=== PATIENT | female | born 1945 | race Caucasian/White ===

== ENCOUNTER → 2016-11-08 | Outpatient (CLI) | payer OTHER, MEDICARE ==
[2015-04-22 11:58] VITALS: BP 124/72
[~2016-11-08] MED LIST: ALBU8.5H6 INH; BUDE10.2 IH; CALC200V IJ; FURO40TA4 PO; POTA20TA82 PO; b-12 SUBCUT
--- NOTE | 2016-11-08 12:56 | RAD ---
EXAM: DIGITAL SCREEN BILAT W/CAD. HISTORY: Screening. COMPARISON: 05/08/2014. FINDINGS: Digital mammography was performed. Computer-aided detection (CAD) was utilized. The breast parenchyma is heterogeneously dense, which could reduce sensitivity of mammography (tissue density C). No dominant suspicious mass, suspicious microcalcifications, or architectural distortion is identified. Both breasts demonstrate multiple calcifications are without significant. IMPRESSION: No mammographic evidence of malignancy. BI-RADS CATEGORY: 2 BENIGN FINDING(S) RECOMMENDED FOLLOW-UP: 12M 12 MONTH FOLLOW-UP PQRS compliance statement: Patient information was entered into a reminder system with a target due date for the next mammogram. Mammography is a sensitive method for finding small breast cancers, but it does not detect them all and is not a substitute for careful clinical examination. A negative mammogram does not negate a clinically suspicious finding and should not result in delay in biopsying a clinically suspicious abnormality. "Our facility is accredited by the [employer] Mammography Program."
== END | disposition home or self-care (01) ==
LOC: MAMMO 08:00
PROVIDERS: ATTEND Family Medicine
DX: Z12.31 Encounter for screening mammogram for malignant neoplasm of breast (principal)
CPT/HCPCS: 77052; G0202; 77067

== ENCOUNTER → 2017-02-06 | Outpatient (CLI) | payer MEDICARE, OTHER ==
[2015-04-22 11:58] VITALS: BP 124/72
== END | disposition home or self-care (01) ==
LOC: PF 12:21
PROVIDERS: ATTEND Internal Medicine Critical Care Medicine
DX: R06.02 Shortness of breath (principal)
CPT/HCPCS: 94060; 94729

== ENCOUNTER 2017-12-13 13:33 | Inpatient (IN) | payer MEDICARE, OTHER ==
[2017-12-13] MEDS: FUROSEMIDE 40 MG/4 ML VIAL. IVP (14:47)
[2017-12-13] MEDS: methylPREDNISolone SOD SUCC PF 125 MG/2 ML VIAL. IV (14:47)
[2017-12-13] MEDS: IPRATRPIUM/ALBUTEROL 0.5/2.5MG 3 ML NEBU. NEB (15:07)
[2017-12-13 15:25] LABS: ADD MAN DIFF? NO
[2017-12-13 15:26] LABS: HEMATOCRIT 42.6 % (36.0-47.0); HEMOGLOBIN 14.5 g/dL (12.0-15.5); MEAN CORPUSCULAR HEMOGLOBIN 30 pg (25-35); MEAN CORPUSCULAR HGB CONC 34 g/dL (31-37); MEAN CORPUSCULAR VOLUME 89 fL (79-100); NEUT % 48 % (31-73); PLATELET COUNT 197 x10^3/uL (140-400); RED BLOOD COUNT 4.78 x10^6/uL (3.50-5.40); RED CELL DISTRIBUTION WIDTH 14.7 % (11.5-14.5); WHITE BLOOD COUNT 7.2 x10^3/uL (4.0-11.0)
[2017-12-13 15:27] LABS: BASO # 0.1 x10^3/uL (0.0-0.2); BASO % 2 % (0-3); EOS # 0.3 x10^3/uL (0.0-0.7); EOS % 4 % (0-3); LYMPH # 2.5 x10^3/uL (1.0-4.8); LYMPH % 35 % (24-48); MONO # 0.9 x10^3/uL (0.0-1.1); MONO % 12 % (0-9); NEUT # 3.4 x10^3uL (1.8-7.7)
[2017-12-13 15:36] LABS: PARTIAL THROMBOPLASTIN TIME 30 SEC (24-38); PROTHROMBIN TIME PATIENT 12.1 SEC (11.7-14.0)
[2017-12-13 15:45] LABS: ANION GAP 6 (6-14); BLOOD UREA NITROGEN 10 mg/dL (7-20); BUN/CREATININE RATIO 14 (6-20); CARBON DIOXIDE 33 mmol/L (21-32); CHLORIDE 102 mmol/L (98-107); CREATININE 0.7 mg/dL (0.6-1.0); GFR 81.8; GLUCOSE 103 mg/dL (70-99); SODIUM 141 mmol/L (136-145)
[2017-12-13 15:47] LABS: INFLUENZA A PATIENT NEGATIVE (NEGATIVE); INFLUENZA B PATIENT NEGATIVE (NEGATIVE); OBC FLU VALID
[2017-12-13 15:48] LABS: TROPONINI 0.022 ng/mL (0.000-0.055)
[2017-12-13 15:49] LABS: ALBUMIN 3.7 g/dL (3.4-5.0); ALBUMIN/GLOBULIN RATIO 1.1 (1.0-1.7); ALK PHOS 76 U/L (46-116); ALT (SGPT) 23 U/L (14-59); AST (SGOT) 28 U/L (15-37); MAGNESIUM 2.1 mg/dL (1.8-2.4); TOTAL BILIRUBIN 0.4 mg/dL (0.2-1.0)
[2017-12-13 15:52] LABS: LACTIC ACID 1.2 mmol/L (0.4-2.0); NT-PRO BNP 297 pg/mL (0-124)
[2017-12-13] MEDS ORDERED: ONDANSETRON PF 4 MG/2 ML VIAL. IV (16:00)
[2017-12-13 17:02] LABS: CRENATED RBC PRESENT; OVALOCYTES OCC; PLT ESTIMATE ADEQUATE (ADEQUATE); STOMATOCYTES OCC
[2017-12-13 19:29] LABS: TROPONINI < 0.017 ng/mL (0.000-0.055)
[2017-12-13 22:22] LABS: TROPONINI 0.017 ng/mL (0.000-0.055)
[2017-12-13] MEDS: BUDESONIDE 0.5 MG/2 ML NEBU. NEB (23:00)
[2017-12-13] MEDS: ALBUTEROL SULFATE 2.5 MG/3 ML NEBU. NEB (23:41)
[2017-12-14] MEDS ORDERED: HYDROcodone/APAP 5/325MG 1 TAB TABLET PO (00:30)
[2017-12-14] MEDS: ACETAMINOPHEN 325 MG TABLET. PO ×3 (00:41→18:53)
[2017-12-14 04:03] LABS: ADD MAN DIFF? NO
[2017-12-14 04:55] LABS: BASO % 0 % (0-3); EOS % 0 % (0-3); HEMATOCRIT 38.7 % (36.0-47.0); HEMOGLOBIN 12.9 g/dL (12.0-15.5); LYMPH # 1.8 x10^3/uL (1.0-4.8); LYMPH % 31 % (24-48); MEAN CORPUSCULAR HEMOGLOBIN 30 pg (25-35); MEAN CORPUSCULAR HGB CONC 33 g/dL (31-37); MEAN CORPUSCULAR VOLUME 89 fL (79-100); MONO # 0.5 x10^3/uL (0.0-1.1); MONO % 8 % (0-9); NEUT # 3.5 x10^3uL (1.8-7.7); NEUT % 61 % (31-73); PLATELET COUNT 182 x10^3/uL (140-400); RED BLOOD COUNT 4.37 x10^6/uL (3.50-5.40); RED CELL DISTRIBUTION WIDTH 14.4 % (11.5-14.5); WHITE BLOOD COUNT 5.8 x10^3/uL (4.0-11.0)
[2017-12-14 05:38] LABS: ANION GAP 8 (6-14); BLOOD UREA NITROGEN 13 mg/dL (7-20); CALCIUM 8.6 mg/dL (8.5-10.1); CARBON DIOXIDE 30 mmol/L (21-32); CHLORIDE 104 mmol/L (98-107); CREATININE 0.7 mg/dL (0.6-1.0); GFR 81.8; GLUCOSE 116 mg/dL (70-99); POTASSIUM 3.6 mmol/L (3.5-5.1); SODIUM 142 mmol/L (136-145)
[2017-12-14] MEDS: BUDESONIDE 0.5 MG/2 ML NEBU. NEB ×2 (08:02→20:27)
[2017-12-14] MEDS: ALBUTEROL SULFATE 2.5 MG/3 ML NEBU. NEB ×4 (08:02→20:27)
[2017-12-14] MEDS: POTASSIUM CHLORIDE 20 MEQ TABLET.ER. PO (09:09)
[2017-12-14] MEDS: FUROSEMIDE 40 MG TABLET. PO (09:09)
[2017-12-14 09:40] LABS: CHOLESTEROL 153 mg/dL (0-200); CHOLESTEROL/HDL RATIO 1.8; HDLC 86 mg/dL (40-60); LDLC 60 mg/dL (0-100); NON-HDL CHOLESTEROL 67 mg/dL (0-129); TRIGLYCERIDES 37 mg/dL (0-150); VLDLC 7 mg/dL (0-40)
[2017-12-14 09:55] LABS: THYROID STIM HORMONE (TSH) 0.347 uIU/mL (0.358-3.74)
[2017-12-14] MEDS: LOSARTAN POTASSIUM 50 MG TABLET. PO ×2 (12:00→12:57)
[2017-12-14] MEDS ORDERED: hydrALAZINE 20 MG/ML VIAL. IVP (12:00)
[2017-12-14] MEDS: MONTELUKAST SODIUM 10 MG TABLET. PO (18:53)
[2017-12-14] MEDS ORDERED: ONDANSETRON ODT 4 MG TAB.RAPDIS. PO (19:00)
[2017-12-14] MEDS ORDERED: ONDANSETRON PF 4 MG/2 ML VIAL. IV (19:00)
[2017-12-14] MEDS: LACTOBACILLUS RHAMNOSUS GG 1 CAPSULE. PO (21:00)
[2017-12-14] MEDS: methylPREDNISolone SOD SUCC PF 125 MG/2 ML VIAL. IV (22:01)
[2017-12-15] MEDS: ALBUTEROL SULFATE 2.5 MG/3 ML NEBU. NEB ×5 (02:46→19:30)
[2017-12-15 04:51] LABS: BASO % 0 % (0-3); EOS % 0 % (0-3); HEMOGLOBIN 14.1 g/dL (12.0-15.5); LYMPH # 1.1 x10^3/uL (1.0-4.8); LYMPH % 5 % (24-48); MEAN CORPUSCULAR HEMOGLOBIN 29 pg (25-35); MEAN CORPUSCULAR HGB CONC 32 g/dL (31-37); MEAN CORPUSCULAR VOLUME 90 fL (79-100); MONO # 0.3 x10^3/uL (0.0-1.1); MONO % 1 % (0-9); NEUT # 21.9 x10^3uL (1.8-7.7); NEUT % 94 % (31-73); PLATELET COUNT 189 x10^3/uL (140-400); RED CELL DISTRIBUTION WIDTH 14.8 % (11.5-14.5)
[2017-12-15 05:13] LABS: ANION GAP 7 (6-14); BLOOD UREA NITROGEN 16 mg/dL (7-20); CALCIUM 8.6 mg/dL (8.5-10.1); CARBON DIOXIDE 31 mmol/L (21-32); CHLORIDE 101 mmol/L (98-107); CREATININE 0.8 mg/dL (0.6-1.0); GFR 70.1; GLUCOSE 150 mg/dL (70-99); POTASSIUM 3.7 mmol/L (3.5-5.1); SODIUM 139 mmol/L (136-145)
[2017-12-15 05:28] LABS: ADD MAN DIFF? YES; WHITE BLOOD COUNT 23.4 x10^3/uL (4.0-11.0)
[2017-12-15] MEDS: FUROSEMIDE 40 MG/4 ML VIAL. IVP (06:41)
[2017-12-15] MEDS: BUDESONIDE 0.5 MG/2 ML NEBU. NEB ×2 (08:00→19:31)
[2017-12-15] MEDS: POTASSIUM CHLORIDE 20 MEQ TABLET.ER. PO (09:35)
[2017-12-15] MEDS: FUROSEMIDE 40 MG TABLET. PO (09:35)
[2017-12-15] MEDS: LACTOBACILLUS RHAMNOSUS GG 1 CAPSULE. PO ×2 (09:35→21:13)
[2017-12-15] MEDS: ASPIRIN ENTERIC COATED 81 MG TABLET.DR. PO (09:35)
[2017-12-15] MEDS: LOSARTAN POTASSIUM 50 MG TABLET. PO (09:36)
[2017-12-15] MEDS: methylPREDNISolone SOD SUCC PF 40 MG/ML VIAL. IV ×2 (09:36→21:14)
[2017-12-15 11:52] LABS: % BANDS 38 % (0-9); % LYMPHS 2 % (24-48); % SEGS 60 % (35-66); PLT ESTIMATE ADEQUATE (ADEQUATE)
[2017-12-15 11:54] LABS: BURR CELLS FEW; OVALOCYTES FEW
[2017-12-15 11:55] LABS: ACANTHOCYTES OCC; TARGET CELLS OCC
[2017-12-15] MEDS: MONTELUKAST SODIUM 10 MG TABLET. PO (21:13)
[2017-12-16 04:09] LABS: ADD MAN DIFF? NO
[2017-12-16 04:17] LABS: BASO % 0 % (0-3); EOS % 0 % (0-3); HEMATOCRIT 41.6 % (36.0-47.0); HEMOGLOBIN 13.5 g/dL (12.0-15.5); LYMPH # 1.2 x10^3/uL (1.0-4.8); LYMPH % 7 % (24-48); MEAN CORPUSCULAR HEMOGLOBIN 29 pg (25-35); MEAN CORPUSCULAR HGB CONC 33 g/dL (31-37); MEAN CORPUSCULAR VOLUME 89 fL (79-100); MONO # 0.7 x10^3/uL (0.0-1.1); MONO % 4 % (0-9); NEUT # 14.9 x10^3uL (1.8-7.7); NEUT % 88 % (31-73); PLATELET COUNT 180 x10^3/uL (140-400); RED BLOOD COUNT 4.67 x10^6/uL (3.50-5.40); RED CELL DISTRIBUTION WIDTH 14.5 % (11.5-14.5); WHITE BLOOD COUNT 16.9 x10^3/uL (4.0-11.0)
[2017-12-16 04:29] LABS: ANION GAP 7 (6-14); BLOOD UREA NITROGEN 22 mg/dL (7-20); CALCIUM 8.5 mg/dL (8.5-10.1); CARBON DIOXIDE 31 mmol/L (21-32); CHLORIDE 101 mmol/L (98-107); CREATININE 0.8 mg/dL (0.6-1.0); GFR 70.1; GLUCOSE 137 mg/dL (70-99); POTASSIUM 3.8 mmol/L (3.5-5.1); SODIUM 139 mmol/L (136-145)
[2017-12-16] MEDS: BUDESONIDE 0.5 MG/2 ML NEBU. NEB (06:21)
[2017-12-16] MEDS: ALBUTEROL SULFATE 2.5 MG/3 ML NEBU. NEB ×3 (06:22→15:03)
[2017-12-16] MEDS: guaiFENesin DM 200MG/20MG 10 ML SYRUP PO (09:00)
[2017-12-16] MEDS: LOSARTAN POTASSIUM 50 MG TABLET. PO (09:00)
[2017-12-16] MEDS: ASPIRIN ENTERIC COATED 81 MG TABLET.DR. PO (09:01)
[2017-12-16] MEDS: LACTOBACILLUS RHAMNOSUS GG 1 CAPSULE. PO (09:01)
[2017-12-16] MEDS: POTASSIUM CHLORIDE 20 MEQ TABLET.ER. PO (09:01)
[2017-12-16] MEDS: FUROSEMIDE 40 MG TABLET. PO (09:01)
[2017-12-16] MEDS: methylPREDNISolone SOD SUCC PF 40 MG/ML VIAL. IV (09:02)
[2017-12-17] MEDS ORDERED: predniSONE 20 MG TABLET PO (09:00)
== END 2017-12-16 16:51 | disposition home or self-care (01) | DRG 177 ==
LOC: ER 13:33 → ED HOLD 15:12 → 6 SOUTH 17:42
DX: J15.6 Pneumonia due to other Gram-negative bacteria (principal); J96.01 Acute respiratory failure with hypoxia; I50.33 Acute on chronic diastolic (congestive) heart failure; J44.0 Chronic obstructive pulmonary disease with (acute) lower respiratory infection; J44.1 Chronic obstructive pulmonary disease with (acute) exacerbation; L97.229 Non-pressure chronic ulcer of left calf with unspecified severity; I11.0 Hypertensive heart disease with heart failure; J18.9 Pneumonia, unspecified organism; F03.90 Unspecified dementia, unspecified severity, without behavioral disturbance, psychotic disturbance, mood disturbance, and anxiety; F17.200 Nicotine dependence, unspecified, uncomplicated; K21.9 Gastro-esophageal reflux disease without esophagitis; M06.9 Rheumatoid arthritis, unspecified; M19.90 Unspecified osteoarthritis, unspecified site; M81.0 Age-related osteoporosis without current pathological fracture; Z79.51 Long term (current) use of inhaled steroids; Z79.899 Other long term (current) drug therapy; Z82.49 Family history of ischemic heart disease and other diseases of the circulatory system; Z87.11 Personal history of peptic ulcer disease; Z90.3 Acquired absence of stomach [part of]; Z90.49 Acquired absence of other specified parts of digestive tract; Z90.710 Acquired absence of both cervix and uterus; Z98.84 Bariatric surgery status; Z98.49 Cataract extraction status, unspecified eye; Z88.0 Allergy status to penicillin
CPT/HCPCS: 36415; 71045; 80048; 80053; 80061; 83605; 83735; 83880; 84443; 84484; 85007; 85025; 85610; 85730; 87040; 87804; 87804-59; 93005; 93306; 94640; 96374; 96375; 97110-GP; 97116-GP; 97162-GP; 97530-GP; 99285; 99285-25; J1940; J1956; J2920; J2930; J7613; J7620; J7626

== ENCOUNTER → 2017-12-21 | Outpatient (CLI) | payer MEDICARE, OTHER | END | disposition home or self-care (01) | LOC: PMGWOUND 08:37 | DX: I87.312 Chronic venous hypertension (idiopathic) with ulcer of left lower extremity (principal); L97.223 Non-pressure chronic ulcer of left calf with necrosis of muscle; J45.909 Unspecified asthma, uncomplicated; K21.9 Gastro-esophageal reflux disease without esophagitis; M81.0 Age-related osteoporosis without current pathological fracture; M06.9 Rheumatoid arthritis, unspecified; J44.1 Chronic obstructive pulmonary disease with (acute) exacerbation; I11.0 Hypertensive heart disease with heart failure; I50.33 Acute on chronic diastolic (congestive) heart failure; F03.90 Unspecified dementia, unspecified severity, without behavioral disturbance, psychotic disturbance, mood disturbance, and anxiety; M19.90 Unspecified osteoarthritis, unspecified site; Z87.891 Personal history of nicotine dependence; Z90.710 Acquired absence of both cervix and uterus; Z90.49 Acquired absence of other specified parts of digestive tract | CPT/HCPCS: 97597 ==

== ENCOUNTER → 2017-12-28 | Outpatient (CLI) | payer MEDICARE, OTHER | END | disposition home or self-care (01) | LOC: PMGWOUND 07:49 | DX: I87.312 Chronic venous hypertension (idiopathic) with ulcer of left lower extremity (principal); L97.223 Non-pressure chronic ulcer of left calf with necrosis of muscle; K21.9 Gastro-esophageal reflux disease without esophagitis; M81.0 Age-related osteoporosis without current pathological fracture; M06.9 Rheumatoid arthritis, unspecified; K27.9 Peptic ulcer, site unspecified, unspecified as acute or chronic, without hemorrhage or perforation; I11.0 Hypertensive heart disease with heart failure; I50.33 Acute on chronic diastolic (congestive) heart failure; J44.1 Chronic obstructive pulmonary disease with (acute) exacerbation; M19.90 Unspecified osteoarthritis, unspecified site; J44.0 Chronic obstructive pulmonary disease with (acute) lower respiratory infection; Z87.891 Personal history of nicotine dependence; Z90.710 Acquired absence of both cervix and uterus | CPT/HCPCS: 97597 ==

== ENCOUNTER → 2018-01-04 | Outpatient (CLI) | payer MEDICARE, OTHER | END | disposition home or self-care (01) | LOC: PMGWOUND 07:51 | DX: I87.312 Chronic venous hypertension (idiopathic) with ulcer of left lower extremity (principal); L97.223 Non-pressure chronic ulcer of left calf with necrosis of muscle; M81.0 Age-related osteoporosis without current pathological fracture; J44.1 Chronic obstructive pulmonary disease with (acute) exacerbation; K21.9 Gastro-esophageal reflux disease without esophagitis; I11.0 Hypertensive heart disease with heart failure; I50.33 Acute on chronic diastolic (congestive) heart failure; M06.9 Rheumatoid arthritis, unspecified; M19.90 Unspecified osteoarthritis, unspecified site; F03.90 Unspecified dementia, unspecified severity, without behavioral disturbance, psychotic disturbance, mood disturbance, and anxiety; Z90.49 Acquired absence of other specified parts of digestive tract; Z90.710 Acquired absence of both cervix and uterus; Z87.891 Personal history of nicotine dependence; Z72.89 Other problems related to lifestyle | CPT/HCPCS: 99214 ==

== ENCOUNTER → 2018-01-10 | Outpatient (CLI) | payer MEDICARE, OTHER | END | disposition home or self-care (01) | LOC: PMGWOUND 11:14 | DX: I87.312 Chronic venous hypertension (idiopathic) with ulcer of left lower extremity (principal); L97.223 Non-pressure chronic ulcer of left calf with necrosis of muscle; M81.0 Age-related osteoporosis without current pathological fracture; J44.1 Chronic obstructive pulmonary disease with (acute) exacerbation; K21.9 Gastro-esophageal reflux disease without esophagitis; I11.0 Hypertensive heart disease with heart failure; I50.33 Acute on chronic diastolic (congestive) heart failure; M06.9 Rheumatoid arthritis, unspecified; M19.90 Unspecified osteoarthritis, unspecified site; F03.90 Unspecified dementia, unspecified severity, without behavioral disturbance, psychotic disturbance, mood disturbance, and anxiety; Z90.49 Acquired absence of other specified parts of digestive tract; Z90.710 Acquired absence of both cervix and uterus; Z87.891 Personal history of nicotine dependence; Z72.89 Other problems related to lifestyle | CPT/HCPCS: 97597 ==

== ENCOUNTER → 2018-01-23 | Outpatient (CLI) | payer MEDICARE, OTHER | END | disposition home or self-care (01) | LOC: PMGWOUND 08:12 | DX: I87.312 Chronic venous hypertension (idiopathic) with ulcer of left lower extremity (principal); L97.223 Non-pressure chronic ulcer of left calf with necrosis of muscle; M81.0 Age-related osteoporosis without current pathological fracture; J44.1 Chronic obstructive pulmonary disease with (acute) exacerbation; K21.9 Gastro-esophageal reflux disease without esophagitis; I11.0 Hypertensive heart disease with heart failure; I50.33 Acute on chronic diastolic (congestive) heart failure; M06.9 Rheumatoid arthritis, unspecified; M19.90 Unspecified osteoarthritis, unspecified site; F03.90 Unspecified dementia, unspecified severity, without behavioral disturbance, psychotic disturbance, mood disturbance, and anxiety; Z90.49 Acquired absence of other specified parts of digestive tract; Z90.710 Acquired absence of both cervix and uterus; Z87.891 Personal history of nicotine dependence | CPT/HCPCS: 99214 ==

== ENCOUNTER → 2018-01-30 | Outpatient (CLI) | payer MEDICARE, OTHER | END | disposition home or self-care (01) | LOC: PMGWOUND 07:41 | DX: I87.312 Chronic venous hypertension (idiopathic) with ulcer of left lower extremity (principal); L97.223 Non-pressure chronic ulcer of left calf with necrosis of muscle; M81.0 Age-related osteoporosis without current pathological fracture; J44.1 Chronic obstructive pulmonary disease with (acute) exacerbation; K21.9 Gastro-esophageal reflux disease without esophagitis; I11.0 Hypertensive heart disease with heart failure; I50.33 Acute on chronic diastolic (congestive) heart failure; M06.9 Rheumatoid arthritis, unspecified; M19.90 Unspecified osteoarthritis, unspecified site; F03.90 Unspecified dementia, unspecified severity, without behavioral disturbance, psychotic disturbance, mood disturbance, and anxiety; Z90.49 Acquired absence of other specified parts of digestive tract; Z90.710 Acquired absence of both cervix and uterus; Z87.891 Personal history of nicotine dependence | CPT/HCPCS: G0463 ==

== ENCOUNTER → 2021-06-16 | Outpatient (CLI) | payer MEDICARE, MEDICAID ==
[2017-12-16 10:55] VITALS: BP 134/67
[~2021-06-16] MED LIST changes: +BUDE180A IH; +LEVO500T59 PO; +LOSA-73 PO; +MONT10TA49 PO; +POTA20TA4 PO; -POTA20TA82 PO
--- NOTE | 2021-06-16 17:27 | CARD ---
MR#: [id number] Date of Study: 06/16/2021 Ordering Physician: JULIO RAZA, Referring Physician: JULIO RAZA, Tech: Tonia Barrios, [facility] APPROVED REPORT EXAM: Two-dimensional and M-mode echocardiogram with Doppler and color Doppler. Other Information Quality : AverageHR: 68bpm INDICATION Chest Pain RISK FACTORS Hypertension Asthma 2D DIMENSIONS Left Atrium(2D)2.7 (1.6-4.0cm)IVSd0.8 (0.7-1.1cm) Aortic Root(2D)2.7 (2.0-3.7cm)LVDd5.0 (3.9-5.9cm) LVOT Diameter1.9 (1.8-2.4cm)PWd0.8 (0.7-1.1cm) LVDs2.9 (2.5-4.0cm)FS (%) 42.9 % SV87.5 ml Aortic Valve AoV Peak Earnest.111.1cm/sAoV VTI29.0cm AO Peak GR.4.9mmHgLVOT Peak Earnest.91.7cm/s LVOT VTI 23.41cmAO Mean GR.3mmHg SHAHLA (VMAX)1.31bh5FBF (VTI)2.35cm2 Mitral Valve MV E Ygohzmgp71.4cm/sMV DECEL [id number] MV A Zlkyiiaa11.5cm/sMV ASU93ib E/A Ratio1.1MVA (PHT)5.16cm2 TDI E/Lateral E'7.9E/Medial E'8.1 Pulmonary Valve PV Peak Eizfmoov79.2cm/sPV Peak Grad.3mmHg Tricuspid Valve TR P. Ybkjvdjr910wd/sRAP [id number] TR Peak Gr.25njVuHNOH20deRh Pulmonary Vein S1 Tvvsqvrz31.9cm/sD2 Mtnoqihb38.6cm/s PVa [id number] LEFT VENTRICLE The left ventricle is normal size. There is normal left ventricular wall thickness. The left ventricu lar systolic function is normal and the ejection fraction is within normal range. The Ejection Fracti on is 50-55%. There is normal LV segmental wall motion. The left ventricular diastolic function and f illing is normal for age. RIGHT VENTRICLE The right ventricle is normal size. There is normal right ventricular wall thickness. The right ventr icular systolic function is normal. ATRIA The left atrium size is normal. The right atrium is mildly dilated. The interatrial septum is intact with no evidence for an atrial septal defect or patent foramen ovale as noted on 2-D or Doppler imagi ng. AORTIC VALVE The aortic valve is thickened but opens well. Doppler and Color Flow revealed no significant aortic r egurgitation. There is no significant aortic valvular stenosis. Calculated aortic valve area is 2.66 cm2 with maximum pressure gradient of 7 mmHg and mean pressure gradient of 4 mmHg. MITRAL VALVE The mitral valve is normal in structure and function. There is no evidence of mitral valve prolapse. There is no mitral valve stenosis. Doppler and Color-flow revealed trace mitral regurgitation. TRICUSPID VALVE The tricuspid valve is normal in structure and function. Doppler and Color Flow revealed moderate to severe tricuspid regurgitation with an estimated PAP of 71 mmHg. There is moderate-severe pulmonary h ypertension. There is no tricuspid valve stenosis. PULMONIC VALVE The pulmonary valve is normal in structure and function. Doppler and Color Flow revealed no pulmonic valvular regurgitation. GREAT VESSELS The aortic root is normal in size. The IVC is dilated. PERICARDIAL EFFUSION There is no evidence of significant pericardial effusion. Critical Notification Critical Value: No <Conclusion> The left ventricle is normal size. The left ventricular systolic function is normal and the ejection fraction is within normal range. The Ejection Fraction is 50-55%. Doppler and Color Flow revealed no significant aortic regurgitation. There is no significant aortic valvular stenosis. Doppler and Color-flow revealed trace mitral regurgitation. Doppler and Color Flow revealed moderate to severe tricuspid regurgitation with an estimated PAP of 7 1 mmHg. There is moderate-severe pulmonary hypertension. Signed by : Glynn Us MD Electronically Approved : 06/16/2021 17:27:21
== END ==
LOC: ECHO 07:17
PROVIDERS: ATTEND Internal Medicine Cardiovascular Disease
DX: I08.2 Rheumatic disorders of both aortic and tricuspid valves (principal); I27.20 Pulmonary hypertension, unspecified
CPT/HCPCS: 93017; 93306